=== PATIENT | male | born 1995 ===

== ENCOUNTER → 2017-03-12 | Outpatient (CLI) | payer OTHER ==
--- NOTE | 2017-03-12 12:02 | DIAGNOSTIC IMAGING REPORT ---
RIGHT WRIST MIN 3 VIEWS ROUTINE CLINICAL HISTORY: Right wrist fracture. COMPARISON: None FINDINGS: No definite fracture is identified. Alignment of the right carpal bones is anatomic. There is an equivocal nondisplaced scaphoid waist fracture. IMPRESSION: No definite fracture identified. Equivocal nondisplaced scaphoid waist fracture, favor artifact. Electronically signed by: Abdirashid Yao M.D. 03/12/2017 12:01 PM Dictated Date/Time: 03/12/2017 11:57 AM
--- NOTE | 2017-03-12 12:22 | DIAGNOSTIC IMAGING REPORT ---
RIGHT WRIST 2 VIEWS HISTORY: 21 years Male acute right wrist pain with concern for scaphoid fracture. COMPARISON: Right wrist radiographs 03/12/2017 TECHNIQUE: Single AP view of the scaphoid. FINDINGS: There is a focal bony excrescence involving the lateral aspect of the mid scaphoid correlating with the finding seen on comparison study which appears to reflect normal bony anatomy. No acute fracture or dislocation is identified. Negative for radiopaque foreign body. No significant degenerative changes. IMPRESSION: No acute scaphoid fracture is identified. If of further clinical concern for radiographically occult fracture, a follow-up MRI of the wrist may be considered. The above report was generated using voice recognition software. It may contain grammatical, syntax or spelling errors. Electronically signed by: Brayan Rodriguez M.D. 03/12/2017 12:21 PM Dictated Date/Time: 03/12/2017 12:19 PM
== END | disposition home or self-care (01) ==
LOC: C.RDSM 11:23
PROVIDERS: ATTEND Family Medicine
DX: S62.101A Fracture of unspecified carpal bone, right wrist, initial encounter for closed fracture (principal); X58.XXXA Exposure to other specified factors, initial encounter

== ENCOUNTER → 2017-03-26 | Outpatient (CLI) | payer OTHER ==
--- NOTE | 2017-03-26 13:23 | DIAGNOSTIC IMAGING REPORT ---
RIGHT WRIST W/NAVICULAR MIN 3 VIEWS CLINICAL HISTORY: 21 years-old Male presenting with RIGHT WRIST PAIN Right. TECHNIQUE: Frontal, oblique, lateral, and scaphoid views of the right wrist were obtained. COMPARISON: 03/12/2017. FINDINGS: At the site of previous seen noted equivocal scaphoid cortical irregularity, no increased radiolucency to suggest fracture. No malalignment. No gross soft tissue swelling. Radiocarpal and intercarpal articulations intact. IMPRESSION: No acute osseous injury of the right wrist. Electronically signed by: Guzman Randhawa M.D. 03/26/2017 1:22 PM Dictated Date/Time: 03/26/2017 1:20 PM
== END | disposition home or self-care (01) ==
LOC: C.RDSM 10:52
PROVIDERS: ATTEND Internal Medicine
DX: M25.531 Pain in right wrist (principal)